=== PATIENT | male | born 1975 | race Caucasian/White ===

== ENCOUNTER 2025-04-06 10:37 | Outpatient (CLI) | payer MEDICAID, SELFPAY ==
[2025-04-06 11:00] LABS: Hematocrit* 40.4 % (37.0-53.0); Hemoglobin* 13.1 gm/dL (13.5-17.5); Immature Granulocytes Pct Auto 0.7 %; Mean Corpuscular HGB Conc 32 gm/dL (32-36); Mean Corpuscular Hemoglobin 33 pg (26-34); Mean Corpuscular Volume 101 fL (80-100); RDW Coefficient of Variation % 13.5 % (11.5-15.5); Red Blood Count* 4.01 m/uL (4.30-5.90); White Blood Count* 2.73 K/uL (4.50-11.00)
[2025-04-06 11:07] LABS: Immature Granulocytes Abs Auto 0.00 K/uL (0.00-0.30); Lymphocytes Absolute Auto 0.30 K/uL (0.90-2.90); Slide Review Reflex No
[2025-04-06 11:23] LABS: Albumin* 4.0 g/dL (3.3-5.0); Chloride* 105 mmol/L (96-114); Potassium* 4.2 mmol/L (3.6-5.1); Sodium* 138 mmol/L (135-149)
[2025-04-06 11:25] LABS: Blood Urea Nitrogen* 9 mg/dL (7-30); Creatinine* 0.6 mg/dL (0.5-1.5); Estimated Glomerular Filt Rate 117 ml/min
[2025-04-06 11:26] LABS: Alanine Aminotransferase* 45 U/L (4-50); Alkaline Phosphatase* 67 U/L (40-150); Anion Gap 5 mEq/L (7-15); Aspartate Amino Transferase* 37 U/L (12-35); Bilirubin Total* 0.8 mg/dL (0.1-1.5); Calcium* 9.2 mg/dL (8.4-10.6); Carbon Dioxide* 28 mmol/L (20-32); Glucose* 108 mg/dL (60-115); Total Protein* 6.6 g/dL (6.0-8.3)
== END 2025-04-06 10:38 | disposition home or self-care (01) ==
PROVIDERS: Visit Provider Internal Medicine
DX: D69.6 Thrombocytopenia, unspecified (principal); C7A.8 Other malignant neuroendocrine tumors
CPT/HCPCS: 36415; 80053; 85025

== ENCOUNTER 2025-04-11 09:41 | Outpatient (CLI) | payer MEDICAID, SELFPAY ==
[2025-04-11 10:09] LABS: Hematocrit* 43.0 % (37.0-53.0); Hemoglobin* 14.0 gm/dL (13.5-17.5); Immature Granulocytes Abs Auto 0.00 K/uL (0.00-0.30); Immature Granulocytes Pct Auto 0.0 %; Mean Corpuscular HGB Conc 33 gm/dL (32-36); Mean Corpuscular Hemoglobin 32 pg (26-34); Mean Corpuscular Volume 100 fL (80-100); RDW Coefficient of Variation % 13.9 % (11.5-15.5); Red Blood Count* 4.32 m/uL (4.30-5.90); White Blood Count* 3.31 K/uL (4.50-11.00)
[2025-04-11 10:24] LABS: Albumin* 4.3 g/dL (3.3-5.0); Chloride* 104 mmol/L (96-114); Potassium* 4.5 mmol/L (3.6-5.1); Sodium* 136 mmol/L (135-149)
[2025-04-11 10:27] LABS: Alanine Aminotransferase* 41 U/L (4-50); Alkaline Phosphatase* 66 U/L (40-150); Anion Gap 5 mEq/L (7-15); Aspartate Amino Transferase* 32 U/L (12-35); Bilirubin Total* 0.8 mg/dL (0.1-1.5); Blood Urea Nitrogen* 12 mg/dL (7-30); Calcium* 9.2 mg/dL (8.4-10.6); Carbon Dioxide* 27 mmol/L (20-32); Creatinine* 0.5 mg/dL (0.5-1.5); Estimated Glomerular Filt Rate 123 ml/min; Glucose* 138 mg/dL (60-115); Lymphocytes Absolute Auto 0.10 K/uL (0.90-2.90); Slide Review Reflex No; Total Protein* 7.0 g/dL (6.0-8.3)
== END 2025-04-11 09:42 | disposition home or self-care (01) ==
PROVIDERS: Visit Provider Internal Medicine
DX: C7A.098 Malignant carcinoid tumors of other sites (principal)
CPT/HCPCS: 36415; 80053; 85025

== ENCOUNTER 2025-04-15 10:02 | Outpatient (CLI) | payer MEDICAID, SELFPAY ==
[2025-04-15 10:24] LABS: Hematocrit* 41.3 % (37.0-53.0); Hemoglobin* 13.4 gm/dL (13.5-17.5); Immature Granulocytes Abs Auto 0.00 K/uL (0.00-0.30); Immature Granulocytes Pct Auto 0.0 %; Mean Corpuscular HGB Conc 32 gm/dL (32-36); Mean Corpuscular Hemoglobin 32 pg (26-34); Mean Corpuscular Volume 100 fL (80-100); RDW Coefficient of Variation % 14.0 % (11.5-15.5); Red Blood Count* 4.13 m/uL (4.30-5.90); White Blood Count* 2.69 K/uL (4.50-11.00)
[2025-04-15 10:25] LABS: Lymphocytes Absolute Auto 0.30 K/uL (0.90-2.90); Slide Review Reflex No
== END 2025-04-15 10:03 | disposition home or self-care (01) ==
PROVIDERS: Visit Provider Internal Medicine
DX: D69.6 Thrombocytopenia, unspecified (principal)
CPT/HCPCS: 36415; 85025